=== PATIENT | male | born 1965 | race Caucasian/White ===

== ENCOUNTER 2018-12-14 13:17 | Emergency (ER) | payer OTHER ==
--- OUTSIDE RECORDS SUMMARY | 2018-12-14 13:45 | XMS REPORT | Continuity of Care Document ---
:1965 External Reference #:[id number] Author Name Suzi Potter O.D. Address [address] [place] [id number] Care Team Providers Name Role Phone Boston Duarte M.D. 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 Onset: 11/09/2014 Myopia Sandy Rosas O.D. Onset: 11/09/2014 Regular astigmatism Sandy Rosas O.D. Onset: 11/09/2014 Presbyopia Sandy Rosas O.D. Onset: 11/09/2014 Cortical senile cataract Sandy Rosas O.D. Onset: 11/09/2014 Central serous chorioretinopathy Suzi Potter O.D. Onset: 11/23/2017 Social History Type Date Description Comments Sex Unknown ETOH Use Consumes 1 glass of wine per day Tobacco Use Start: Unknown Patient has never smoked Recreational Drug Use Denies Drug Use Smoking Status Reviewed: 12/06/18 Patient has never smoked Allergies, Adverse Reactions, Alerts Description No Known Drug Allergies Medications Active Medications SIG Qnty Indications Ordering Provider Date Rewetting Drops as needed Suzi Potter O.D. 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 12/06/2018 H52.13 Myopia, bilateral Suzi Potter O.D. 12/06/2018 H52.223 Regular astigmatism, bilateral Suzi Potter O.D. 12/06/2018 H52.4 Presbyopia Suzi Potter O.D. Plan of Treatment Future Appointment(s):12/20/2018 10:45 am - Suzi Potter O.D. at [facility] Holm MD, 12/06/2018 - Suzi Potter O.D.H35.712 Central serous chorioretinopathy, left eyeComments:Smoking can increase the risk of developing or worsening any eye related disease, as well as affect your overall health. If you are a smoker, we strongly recommend that you quit.If you are not a smoker , we strongly recommend that you do not start.H52.13 Myopia, bilateralComments: You have Myopia, or near sightedness. I have given you a prescription for glasses and contact lens trialsFollow up:2 WEEK CL HOEKYH10.223 Regular astigmatism, bilateralComments:Astigmatism is a common vision condition that happens when a person's cornea is not symmetrical. Dr. Potter has given you a prescription to correct for this.H52.4 PresbyopiaComments:You have presbyopia. This is when the lens in your eye loses the ability to change focus, and happens as we age. A pair of reading glasses will help you see up close. Functional Status Description No Information Available Mental Status Description No Information Available Referrals Description No Information Available
[2018-12-14 13:59] VITALS: BP 107/68
[2018-12-14] MEDS ORDERED: Ibuprofen TAB* 600 MG PO ONE (14:03)
--- NOTE | 2018-12-14 14:14 | UC ---
Upper Extremity HPI - HPI Summary HPI Summary: Injured R 5th finger this am playing basketball, cannot recall any certain injury - just started to hurt and then turn black and blue at end of finger - History of Current Complaint Chief Complaint: UCUpperExtremity Stated Complaint: FINGER INJURY Time Seen by Provider: 12/14/18 14:02 Hx Obtained From: Patient Onset/Duration: Sudden Onset Severity Initially: Mild Severity Currently: Moderate Pain Intensity: 6 Location Of Pain: Is Discrete @ - distal R pinky Aggravating Factor(s): Movement Alleviating Factor(s): Ice Associated Signs And Symptoms: Positive: Swelling, Bruising - Allergies/Home Medications Allergies/Adverse Reactions: Allergies Allergy/AdvReac Type Severity Reaction Status Date / Time No Known Allergies Allergy Verified 12/14/18 13:59 PMH/Surg Hx/FS Hx/Imm Hx Previously Healthy: Yes - Surgical History Surgical History: Yes Surgery Procedure, Year, and Place: SINUS. right rotator cuff - Family History Known Family History: Positive: Other - positive [facility] - Social History Occupation: Employed Full-time Lives: With Family Alcohol Use: Daily Alcohol Amount: 2 drinks per day Substance Use Type: None Smoking Status (MU): Former Smoker Have You Smoked in the Last Year: No When Did the Patient Quit Smoking/Using Tobacco: 20 years ago Review of Systems All Other Systems Reviewed And Are Negative: Yes Constitutional: Positive: Negative Respiratory: Positive: Negative Cardiovascular: Positive: Negative Musculoskeletal: Positive: Other: - able to move finger with pain. Negative: Decreased ROM Neurological: Positive: Negative Psychological: Positive: Negative Is Patient Immunocompromised?: No Physical Exam Triage Information Reviewed: Yes Appearance: Well-Appearing, No Pain Distress, Well-Nourished Vital Signs: Initial Vital Signs Temp 97.7 F 12/14/18 13:57 Pulse 73 12/14/18 13:57 Resp 16 12/14/18 13:57 BP 107/68 12/14/18 13:57 Pulse Ox 99 12/14/18 13:57 Vital Signs Reviewed: Yes Respiratory Exam: Normal Respiratory: Positive: Lungs clear Cardiovascular Exam: Normal Cardiovascular: Positive: RRR Musculoskeletal: Positive: Strength Intact, ROM Intact - with pain distal R 5th finger Neurological Exam: Normal Psychological Exam: Normal Skin: Positive: Other - ecchymosis DIP joint R 5th finger Diagnostics - Radiology No standard instances Radiology Interpretation Completed By: Radiologist - Technology Instructor: Jaya Jimenez C ([id number]) Configuration Management Administrator: CONCHA (GABIANCE) Report Date: 14:02:00 Report Status: Final Start of Report Content = Patient Name: CHUCHO TY Medical Record#: [id number] Ordering Physician: Maxwell Harvey MD Acct.#: [id number] : 1965 Age: 53 Sex: M Location : [facility] Exam Date: 12/14/18 1402 ADM Status: REG ER Order Information: FINGER RIGHT SMALL Accession Number: [id number] CPT: 78488 Indication: RIGHT fifth finger pain following injury playing basketball. Comparison: No relevant prior exams available on the [facility] for comparison. Technique: 3 views RIGHT fifth finger. Report: Minimally displaced dorsal base avulsion fracture from the distal phalanx with overlying soft tissue swelling. Normal articular alignment. Upper Extremity Course/Dx - Differential Dx/Diagnosis Differential Diagnosis/HQI/PQRI: Contusion, Fracture (Closed), Strain Provider Diagnosis: Fracture, finger, distal phalanx Discharge ED - Sign-Out/Discharge Documenting (check all that apply): Patient Departure All imaging exams completed and their final reports reviewed: Yes - fractured distal phalynx - Discharge Plan Condition: Good Disposition: HOME Patient Education Materials: Finger Fracture (ED) Referrals: Boston Duarte MD [Primary Care Provider] - Tono Valladares MD [Medical Doctor] - Additional Instructions: elevate and ice finger use ibuprofen as directed for pain use splint until rechecked by orthopedics - Billing Disposition and Condition Condition: GOOD Disposition: Home
== END 2018-12-14 14:56 | disposition home or self-care (01) ==
LOC: UCEAST 13:17
DX: S62.636A Displaced fracture of distal phalanx of right little finger, initial encounter for closed fracture (principal); X58.XXXA Exposure to other specified factors, initial encounter; Y93.67 Activity, basketball; Y92.310 Basketball court as the place of occurrence of the external cause; Y99.8 Other external cause status; Z87.891 Personal history of nicotine dependence
CPT/HCPCS: 73140; 99213; A9270-GY; G0463